=== PATIENT | female | born 1995 | race Hispanic/Latino ===

== ENCOUNTER 2017-09-19 10:43 | Emergency (ER) | payer MEDICAID, OTHER ==
[~2017-09-19 10:43] MED LIST: DOCU-116 PO; IBUP-2077 PO
[2017-09-19] MEDS ORDERED: ACETAMINOPHEN EXTRA STRENGTH 500 MG TABLET ONE (10:54)
[2017-09-19] MEDS ORDERED: IPRATROPIUM/ALBUTEROL SULFATE 3 ML SOLUTION IH ONE (11:01)
[2017-09-19 11:35] LABS: APPEARANCE,URINE Cloudy (CLEAR); BILIRUBIN,URINE Small (NEGATIVE); COLOR,URINE Dark Yellow (YELLOW); GLUCOSE, URINE (UA) Negative (NEGATIVE); KETONES,URINE Trace mg/dL (NEGATIVE); LEUKOCYTE ESTERASE ,URINE Small (NEGATIVE); NITRATE,URINE Negative (NEGATIVE); OCCULT BLOOD,URINE Moderate (NEGATIVE); PH,URINE 5.5 (5.0-8.0); PROTEIN,URINE POS 2+ (NEGATIVE)
[2017-09-19 11:37] LABS: HCG,QUAL RESULT NEGATIVE (NEGATIVE)
[2017-09-19 11:53] LABS: BACTERIA,URINE Few /HPF (None Seen); RBC,URINE 0-1 /HPF (0-1); SQUAMOUS EPITHELIAL CELL,UR 0-2 /HPF (0-2)
== END 2017-09-19 12:22 | disposition home or self-care (01) ==
LOC: EDH 10:43
DX: J20.9 Acute bronchitis, unspecified (principal); M79.1 Myalgia; R50.9 Fever, unspecified
CPT/HCPCS: 81001; 81025; 87804

== ENCOUNTER 2019-03-15 15:54 | Emergency (ER) | payer SELFPAY ==
[2019-03-15] MEDS ORDERED: ACETAMINOPHEN EXTRA STRENGTH 500 MG TABLET ONE (16:22)
== END 2019-03-15 16:44 | disposition home or self-care (01) ==
LOC: EDH 15:54
DX: S83.92XA Sprain of unspecified site of left knee, initial encounter (principal); S80.12XA Contusion of left lower leg, initial encounter; W07.XXXA Fall from chair, initial encounter; Y93.89 Activity, other specified; Y92.89 Other specified places as the place of occurrence of the external cause; Y99.8 Other external cause status
CPT/HCPCS: 73562